=== PATIENT | male | born 1975 | race Caucasian/White ===

== ENCOUNTER → 2020-11-18 11:59 | Outpatient (ROUT) | payer OTHER, SELFPAY ==
[2020-11-18 13:47] LABS: COVID19 -Nasal RAPID POSITIVE (Negative)
== END ==
PROVIDERS: PCP Family Medicine; Visit Provider Family Medicine
DX: U07.1 COVID-19 (principal)
CPT/HCPCS: 87635

== ENCOUNTER → 2021-10-21 11:29 | Outpatient (ROUT) | payer OTHER, SELFPAY ==
[2021-10-21 11:50] LABS: COVID19 -Nasal RAPID Negative (Negative)
== END ==
PROVIDERS: PCP Family Medicine; Visit Provider Family Medicine
DX: Z20.822 Contact with and (suspected) exposure to COVID-19 (principal)
CPT/HCPCS: 87635